=== PATIENT | male | born 1990 | race Caucasian/White ===

== ENCOUNTER 2017-07-06 12:39 | Emergency (ER) | payer SELFPAY | END 2017-07-06 15:05 | disposition home or self-care (01) | PROVIDERS: Emergency Provider Nurse Practitioner; Visit Provider Nurse Practitioner | DX: R51 Headache (principal); R00.2 Palpitations | CPT/HCPCS: G0463; 99201 ==

== ENCOUNTER 2017-07-12 12:59 | Emergency (ER) | payer SELFPAY ==
[2017-07-12 16:08] VITALS: BP 135/81; PULSE 97; RESP 20; TEMP 37.8; O2SAT 100
[2017-07-12 16:10] VITALS: BMI 20.7
[2017-07-12 17:35] VITALS: PULSE 102; RESP 18; TEMP 37.3; O2SAT 96; BMI 20.7
--- NOTE | 2017-07-12 19:21 | HMH.EDURI ---
ED Disposition Clinical Impression: Influenza A Disposition: Home, Self-Care Condition on Discharge: Good Instructions: Influenza Prescriptions: Oseltamivir Phosphate [Tamiflu 75mg Capsule] 75 mg PO BID #10 capsule - Critical Care Critical Care Time: No Attestation: On 07/12/17, the high probability of a clinically significant, sudden or life threatening deterioration of the following system(s) required my full and direct attention, intervention and personal management. The time I documented below is in addition to time spent performing reported procedures but includes the following listed in this critical care notation. Medical Decision Making Vital Signs: 07/12/17 16:08 07/12/17 17:35 Temperature 100.1 F H 99.2 F Temperature Source Oral Oral Pulse Rate [Left Radial] 97 H 102 H Respiratory Rate 20 18 Blood Pressure [Left Arm] 135/81 Blood Pressure Mean [Left Arm] 99 Blood Pressure Source [Left Arm] Automatic Cuff Blood Pressure Position [Left Arm] Sitting 02 Sat by Pulse Oximetry 100 96 Oxygen Delivery Method Room Air Room Air - Lab Data Lab results reviewed: Yes: I reviewed the patient's lab results. positive flu a test Orders (Tests/Meds): ED MEDICATIONS Discontinued Medications Generic Name Dose Route Start Last Admin Trade Name Freq PRN Reason Stop Dose Admin Acetaminophen 1,000 mg 07/12/17 17:06 07/12/17 17:23 Tylenol 500mg Tablet PO 07/12/17 17:07 1,000 mg ONCE ONE Administration - Jesus Inquiry Pt receiving controlled substance: No URI/Sore Throat HPI - General Chief Complaint: Upper Respiratory Infection Stated Complaint: poss flu Mode of Arrival: Ambulatory Source of Information: Patient Limitations: No Limitations Description of Symptoms (Recalled from ER Triage Doc. by RN): PT C/O BODY ACHES, COUGH , FEVER, RUNNY NOSE. - History of Present Illness Complaint: fever, cough Onset (ago): hour(s) (24) Duration: constant Severity: moderate Relieving factors: nothing Exacerbating factors: nothing Description of mucous: clear - Related Data Previous Rx's Medication Instructions Recorded Oseltamivir Phosphate [Tamiflu 75 mg PO BID #10 capsule 07/12/17 75mg Capsule] Allergies Allergy/AdvReac Type Severity Reaction Status Date / Time No Known Allergies Allergy Unverified 06/29/17 15:18 [facility] History I have reviewed the patient's past medical history: Yes Medical History: Denies:: Cancer, Diabetes Mellitus Type 1, Diabetes Mellitus Type 2, MRSA Amputation: No Fractures: No - *Social History Smoking Status: Never smoker Alcohol Intake: never - Psychiatric History Expresses thoughts of harming self/others: None Suicide Plan Description: No Plan ROS Obtained: Yes All systems reviewed & no additional complaints except - Constitutional Reports chills, Reports fever(s) - Respiratory Reports cough Physical Exam - General General appearance: alert, in no apparent distress - Head Head exam: atraumatic, normocephalic, normal inspection - Eye Eye exam: Present: normal appearance, PERRL, EOMI - ENT ENT exam: Present: normal exam, normal oropharynx, mucous membranes moist, TM's normal bilaterally, normal external ear exam - Neck Neck exam: Present: normal inspection, full ROM, trachea midline - Chest Chest inspection: Present: normal inspection, symmetric chest wall rise. Absent: tenderness - Respiratory Respiratory exam: Present: normal lung sounds bilaterally. Absent: respiratory distress - Cardiovascular Cardiovascular exam: Present: regular rate, normal rhythm. Absent: JVD - Abdominal Exam Abdominal exam: Present: soft, normal bowel sounds. Absent: distention, tenderness, guarding - Extremities Exam Extremities exam: Present: normal inspection, full ROM, normal capillary refill. Absent: calf tenderness - Back Exam Back exam: Present: normal inspection. Absent: tenderness - Neurologica
--- NOTE | 2017-07-12 19:25 | ED_ITS ---
ED Disposition Clinical Impression: Influenza A Disposition: Home, Self-Care Condition on Discharge: Good Instructions: Influenza Prescriptions: Oseltamivir Phosphate [Tamiflu 75mg Capsule] 75 mg PO BID #10 capsule - Critical Care Critical Care Time: No Attestation: On 07/12/17, the high probability of a clinically significant, sudden or life threatening deterioration of the following system(s) required my full and direct attention, intervention and personal management. The time I documented below is in addition to time spent performing reported procedures but includes the following listed in this critical care notation. Medical Decision Making Vital Signs: 07/12/17 16:08 07/12/17 17:35 Temperature 100.1 F H 99.2 F Temperature Source Oral Oral Pulse Rate [Left Radial] 97 H 102 H Respiratory Rate 20 18 Blood Pressure [Left Arm] 135/81 Blood Pressure Mean [Left Arm] 99 Blood Pressure Source [Left Arm] Automatic Cuff Blood Pressure Position [Left Arm] Sitting 02 Sat by Pulse Oximetry 100 96 Oxygen Delivery Method Room Air Room Air - Lab Data Lab results reviewed: Yes: I reviewed the patient's lab results. positive flu a test Orders (Tests/Meds): ED MEDICATIONS Discontinued Medications Generic Name Dose Route Start Last Admin Trade Name Freq PRN Reason Stop Dose Admin Acetaminophen 1,000 mg 07/12/17 17:06 07/12/17 17:23 Tylenol 500mg Tablet PO 07/12/17 17:07 1,000 mg ONCE ONE Administration - Jesus Inquiry Pt receiving controlled substance: No URI/Sore Throat HPI - General Chief Complaint: Upper Respiratory Infection Stated Complaint: poss flu Mode of Arrival: Ambulatory Source of Information: Patient Limitations: No Limitations Description of Symptoms (Recalled from ER Triage Doc. by RN): PT C/O BODY ACHES , COUGH , FEVER, RUNNY NOSE. - History of Present Illness Complaint: fever, cough Onset (ago): hour(s) (24) Duration: constant Severity: moderate Relieving factors: nothing Exacerbating factors: nothing Description of mucous: clear - Related Data Previous Rx's Medication Instructions Recorded Oseltamivir Phosphate [Tamiflu 75 mg PO BID #10 capsule 07/12/17 75mg Capsule] Allergies Allergy/AdvReac Type Severity Reaction Status Date / Time No Known Allergies Allergy Unverified 06/29/17 15:18 [facility] History I have reviewed the patient's past medical history: Yes Medical History: Denies:: Cancer, Diabetes Mellitus Type 1, Diabetes Mellitus Type 2, MRSA Amputation: No Fractures: No - *Social History Smoking Status: Never smoker Alcohol Intake: never - Psychiatric History Expresses thoughts of harming self/others: None Suicide Plan Description: No Plan ROS Obtained: Yes All systems reviewed & no additional complaints except - Constitutional Reports chills, Reports fever(s) - Respiratory Reports cough Physical Exam - General General appearance: alert, in no apparent distress - Head Head exam: atraumatic, normocephalic, normal inspection - Eye Eye exam: Present: normal appearance, PERRL, EOMI - ENT ENT exam: Present: normal exam, normal oropharynx, mucous membranes moist, TM's normal b
[2017-07-12 19:40] VITALS: BP 112/64; PULSE 109; RESP 18; TEMP 37.1; O2SAT 100
== END 2017-07-12 19:57 | disposition home or self-care (01) ==
PROVIDERS: Emergency Provider Family Medicine; Family Provider Family Medicine
DX: J10.1 Influenza due to other identified influenza virus with other respiratory manifestations (principal)
CPT/HCPCS: 87275; 87276; 99282; 99283

== ENCOUNTER 2017-08-16 19:02 | Emergency (ER) | payer SELFPAY ==
[2017-08-16 19:04] VITALS: BP 147/82; PULSE 127; RESP 16; TEMP 37.1; O2SAT 99
--- NOTE | 2017-08-16 19:09 | XR_ITS ---
XR chest 2V Ordering Physician: Antonio Mathias MD Patient Age: 26 years: Male HISTORY: ITS.REASON: CHEST PAIN TECHNIQUE: PA and lateral chest COMPARISON :June 04, 2017 2 view chest FINDINGS Narrow AP diameter of the chest was mild pectus excavatum anatomy . This accentuates heart size and density towards the medial lung bases.. Upper normal central markings but I see no focal pneumonia or consolidation . No pneumothorax no pleural effusion no CHF. The ribs and lateral T-spine intact. There is a curious linear density projected over the left kisha, left pulmonary artery.. It is seen only on the AP projection but not evident on the lateral view. Most likely overlapping artifact possibly in clothing. Would benefit from correlation specifically related to any unusual venous infusions/injections. Again I favor this is merely artifact AP view but should be kept in mind particularly if aggressive chest pain on left IMPRESSION: Lungs clear. No pneumothorax nor pleural effusion No acute cardio pulmonary disease.. A linear density projected over the left kisha most likely is artifact but but is noted. Note comments in text
[2017-08-16 19:19] LABS: Basophils % 0.2 % (0.1-2.0); Eosinophils # 0.1 K/mm3 (0.0-0.4); Eosinophils % 0.7 % (0.1-12.0); Hematocrit 48.9 % (42.0-52.0); Hemoglobin 16.8 g/dL (14.1-18.0); Lymphocytes # 2.4 K/mm3 (0.7-4.5); Lymphocytes % 26.5 K/mm3 (10-50); Mean Corpuscular HGB Conc 34.4 g/dL (31.8-35.4); Mean Corpuscular Volume 87.4 fl (80-94); Mean Platelet Volume 7.2 fl (7.4-10.4); Monocytes # 0.5 K/mm3 (0.1-1.0); Monocytes % 5.3 % (1.7-9.3); Neutrophils # 6.1 K/mm3 (1.8-7.8); Neutrophils % 67.3 % (37.0-80.0); Platelet Count 276 K/mm3 (142-424); Red Cell Distribution Width 12.4 % (11.5-17.5); White Blood Count 9.1 K/mm3 (4.8-10.8)
[2017-08-16 19:47] LABS: Alanine Aminotransferase 27 U/L (12-78); Albumin Level 4.5 gm/dL (3.4-5.0); Albumin/Globulin Ratio 1.3 (1.1-1.8); Alkaline Phosphatase 93 U/L (46-116); Anion Gap 12.2 mEq/L (5-15); Aspartate Amino Transferase 17 U/L (15-37); Bilirubin,Total 0.7 mg/dL (0.2-1.0); Blood Urea Nitrogen 14 mg/dL (7-18); CKMB Relative Index 0.5 U/L (0-4.0); Calcium 9.3 mg/dL (8.5-10.1); Carbon Dioxide 29 mmol/L (21.0-32.0); Chloride 102 mmol/L (98-107); Creatine Kinase 110 U/L (39-308); Creatine Kinase MB < 0.5 mg/ml (0.0-3.6); Creatinine Clearance Estimated 103 mL/min (0-300); Creatinine,Serum 0.84 mg/dL (0.70-1.30); Estimated Glomerular Filt Rate 111 ml/min (>60); GFR (African American) 135 ML/MIN (>60); Globulin 3.5 gm/dl (1.3-3.2); Glucose 89 mg/dL (74-106); Potassium 3.2 mmoL/L (3.5-5.1); Sodium 140 mmol/L (136-145); Troponin I < 0.02 ng/ml (0.00-0.06)
--- NOTE | 2017-08-16 20:20 | HMH.EDCP ---
ED Disposition Clinical Impression: Atypical chest pain Disposition: Home, Self-Care Condition on Discharge: Good Instructions: DI for Atypical Chest Pain Additional Instructions: see pcp this week for follow up - Critical Care Critical Care Time: No Attestation: On 08/16/17, the high probability of a clinically significant, sudden or life threatening deterioration of the following system(s) required my full and direct attention, intervention and personal management. The time I documented below is in addition to time spent performing reported procedures but includes the following listed in this critical care notation. Medical Decision Making - Medical Records Medical records reviewed: Yes: I reviewed the patient's medical records. Vital Signs: 08/16/17 19:04 Temperature 98.7 F Temperature Source Oral Pulse Rate [Right Brachial] 127 H Respiratory Rate 16 Blood Pressure [Right Arm] 147/82 Blood Pressure Mean [Right Arm] 103 02 Sat by Pulse Oximetry 99 - Lab Data Lab results reviewed: Yes: I reviewed the patient's lab results. Lab Results 08/16/17 19:11: WBC 9.1, RBC 5.60, Hgb 16.8, Hct 48.9, MCV 87.4, MCH 30.0, MCHC 34.4, RDW 12.4, Plt Count 276, MPV 7.2 L, Neut % (Auto) 67.3, Lymph % (Auto) 26.5, [place] % (Auto) 5.3, Eos % (Auto) 0.7, Baso % (Auto) 0.2, Neut # (Auto) 6.1, Lymph # (Auto) 2.4, [place] # (Auto) 0.5, Eos # (Auto) 0.1, Baso # (Auto) 0.0 08/16/17 19:11: Sodium 140, Potassium 3.2 L, Chloride 102, Carbon Dioxide 29, Anion Gap 12.2, BUN 14, Creatinine 0.84, Estimated Creat Clear 103, Estimated GFR 111, Est GFR ( Amer) 135, Glucose 89, Calcium 9.3, Total Bilirubin 0.7, AST 17, ALT 27, Alkaline Phosphatase 93, Total Creatine Kinase 110, CK-MB (CK-2) < 0.5, CK-MB (CK-2) Rel Index 0.5, Troponin I < 0.02, Total Protein 8.0, Albumin 4.5, Globulin 3.5 H, Albumin/Globulin Ratio 1.3 Result diagrams: 08/16/17 19:11 08/16/17 19:11 Orders (Tests/Meds): ORDERS Category Date Time Status 12-lead EKG Request [ECG Request by /Caitie] Stat Y 08/16/17 19:39 Ordered - Radiology Data #1 Image(s): Chest Image Reviewed: Yes I reviewed the patient's radiology image Preliminary Findings: Normal/NAD - ECG Data Tracing #1 I reviewed this ECG and interpreted as documented below: Normal Sinus Rhythm: Yes Ischemic changes: non-specific ST-T wave changes - Jesus Inquiry Pt receiving controlled substance: No Chest Pain HPI - General Chief Complaint: Chest Pain Stated Complaint: chest [pain Time Seen by Provider: 08/16/17 20:20 Mode of Arrival: Ambulatory Source of Information: Patient, Spouse, Medical Record Limitations: No Limitations Description of Symptoms (Recalled from ER Triage Doc. by RN): CHEST PAIN FOR 2 WEEKS - History of Present Illness HPI narrative: pt with fleeting episodes of stabbing chest pain over the last few months with inc episode last few weeks MD complaint: chest pain Onset (ago): month(s) Duration: now resolved Activity at onset: during rest Pain location: left chest Severity: moderate Quality: sharp Pain radiation: RUE, LUE Relieving factors: nothing Exacerbating factors: nothing Risk Factors for CAD: Family Hx of CAD Treatments prior to or on arrival for Cardiac Chest Pain: none - Related Data Allergies Allergy/AdvReac Type Severity Reaction Status Date / Time No Known Allergies Allergy Verified 08/16/17 19:08 [facility] History I have reviewed the patient's past medical history: Yes Medical History: Denies:: Cancer, Diabetes Mellitus Type 1, Diabetes Mellitus Type 2, MRSA Amputation: No Fractures: No - *Social History Smoking Status: Never smoker Alcohol Intake: never - Psychiatric History Expresses thoughts of harming self/others: None Suicide Plan Description: No Plan ROS Obtained: Yes All systems reviewed & no additional complaints - Constitutional Constitutional: Denies fever(s) - Eyes Eyes: Denies change in visio
--- NOTE | 2017-08-16 20:23 | ED_ITS ---
ED Disposition Clinical Impression: Atypical chest pain Disposition: Home, Self-Care Condition on Discharge: Good Instructions: DI for Atypical Chest Pain Additional Instructions: see pcp this week for follow up - Critical Care Critical Care Time: No Attestation: On 08/16/17, the high probability of a clinically significant, sudden or life threatening deterioration of the following system(s) required my full and direct attention, intervention and personal management. The time I documented below is in addition to time spent performing reported procedures but includes the following listed in this critical care notation. Medical Decision Making - Medical Records Medical records reviewed: Yes: I reviewed the patient's medical records. Vital Signs: 08/16/17 19:04 Temperature 98.7 F Temperature Source Oral Pulse Rate [Right Brachial] 127 H Respiratory Rate 16 Blood Pressure [Right Arm] 147/82 Blood Pressure Mean [Right Arm] 103 02 Sat by Pulse Oximetry 99 - Lab Data Lab results reviewed: Yes: I reviewed the patient's lab results. Lab Results 08/16/17 19:11: WBC 9.1, RBC 5.60, Hgb 16.8, Hct 48.9, MCV 87.4, MCH 30.0, MCHC 34.4, RDW 12.4, Plt Count 276, MPV 7.2 L, Neut % (Auto) 67.3, Lymph % (Auto) 26.5, [place] % (Auto) 5.3, Eos % (Auto) 0.7, Baso % (Auto) 0.2, Neut # (Auto) 6.1 , Lymph # (Auto) 2.4, [place] # (Auto) 0.5, Eos # (Auto) 0.1, Baso # (Auto) 0.0 08/16/17 19:11: Sodium 140, Potassium 3.2 L, Chloride 102, Carbon Dioxide 29, Anion Gap 12.2, BUN 14, Creatinine 0.84, Estimated Creat Clear 103, Estimated GFR 111, Est GFR ( Amer) 135, Glucose 89, Calcium 9.3, Total Bilirubin 0.7, AST 17, ALT 27, Alkaline Phosphatase 93, Total Creatine Kinase 110, CK-MB ( CK-2) < 0.5, CK-MB (CK-2) Rel Index 0.5, Troponin I < 0.02, Total Protein 8.0, Albumin 4.5, Globulin 3.5 H, Albumin/Globulin Ratio 1.3 Result diagrams: 08/16/17 19:11 08/16/17 19:11 Orders (Tests/Meds): ORDERS Category Date Time Status 12-lead EKG Request [ECG Request by /Caitie] Stat Y 08/16/17 19:39 Ordered - Radiology Data #1 Image(s): Chest Image Reviewed: Yes I reviewed the patient's radiology image Preliminary Findings: Normal/NAD - ECG Data Tracing #1 I reviewed this ECG and interpreted as documented below: Normal Sinus Rhythm: Yes Ischemic changes: non-specific ST-T wave changes - Jesus Inquiry Pt receiving controlled substance: No Chest Pain HPI - General Chief Complaint: Chest Pain Stated Complaint: chest [pain Time Seen by Provider: 08/16/17 20:20 Mode of Arrival: Ambulatory Source of Information: Patient, Spouse, Medical Record Limitations: No Limitations Description of Symptoms (Recalled from ER Triage Doc. by RN): CHEST PAIN FOR 2 WEEKS - History of Present Illness HPI narrative: pt with fleeting episodes of stabbing chest pain over the last few months with inc episode last few weeks complaint: chest pain Onset (ago): month(s) Duration: now resolved Activity at onset: during rest Pain location: left chest Severity: moderate Quality: sharp Pain radiation: RUE, LUE Relieving factors: nothing Exacerbating factors: nothing Risk Factors for CAD: Family Hx of CAD Treatments prior to or on arrival for Cardiac Chest Pain: none - Related Data Allergies Allergy/AdvReac Type Severity Reaction Status Date / Time
[2017-08-16 20:38] VITALS: BP 116/76; PULSE 98; RESP 16; TEMP 36.4; O2SAT 97
== END 2017-08-16 20:39 | disposition home or self-care (01) ==
PROVIDERS: Emergency Provider Emergency Medicine; Family Provider Family Medicine
DX: R07.9 Chest pain, unspecified (principal); Z82.49 Family history of ischemic heart disease and other diseases of the circulatory system
CPT/HCPCS: 71046; 80053; 82550; 82553; 84484; 85025; 93005; 99282

== ENCOUNTER → 2017-09-15 17:16 | Outpatient (REF) | payer SELFPAY ==
[2017-09-15 20:09] LABS: Amphetamine/Metha Screen,Urine Negative ng/mL (<1000); Barbiturates Screen,Urine Negative ng/mL (<200); Benzodiazepines Screen,Urine Negative ng/mL (200); Cannabinoid Screen,Urine Negative ng/mL (<50); Cocaine Screen,Urine Negative ng/g (<300); Methadone Screen,Urine Negative ng/mL (<300); Opiate Screen,Urine Positive ng/mL (<300); Phencyclidine Screen,Urine Negative ng/mL (<25)
== END ==
LOC: LAB 17:16
PROVIDERS: Visit Provider Nurse Practitioner Family
DX: Z79.899 Other long term (current) drug therapy (principal)
CPT/HCPCS: 80305

== ENCOUNTER 2017-09-21 16:43 | Emergency (ER) | payer OTHER, SELFPAY ==
--- NOTE | 2017-09-21 16:58 | XR_ITS ---
XR foot LT min 3V HISTORY: Pain following injury ITS.REASON: DROPPED METAL ON FOOT ORDERING PHYSICIAN: Patrick Collier PATIENT AGE: 27 years COMPARISON: None FINDINGS: No fracture or dislocation. No lytic or blastic change. There is normal mineralization.. The joint spaces are well-preserved. No significant degenerative/arthritic changes. No erosive changes evident. IMPRESSION: Negative left foot, no acute finding
[2017-09-21 17:02] VITALS: BP 106/79; PULSE 101; RESP 20; TEMP 36.8; O2SAT 98
--- NOTE | 2017-09-21 17:30 | HMH.EDUTC ---
[facility] [place] Disposition Clinical Impression: Sprain of left foot Qualifiers: Encounter type: initial encounter Qualified Code(s): S93.602A - Unspecified sprain of left foot, initial encounter Disposition: Home, Self-Care Condition on Discharge: Good Instructions: How to Use Crutches, How To Perform RICE (Rest, Ice, Compress, Elevate), How to Apply an Tariq Wrap Additional Instructions: * weight bearing as tolerated. If painful to bear weight, don't do so. I recommended you use crutches because of the pain. pain is your bodies way of telling you to rest. If you don't want to use them, that is up to you but you can do further damage but continuing to bear weight. * Rest * ice 15-20 mins 3-4 times a day * Tariq wrap for support and swelling unless in shower. Be sure not too tight but not too loose either * Elevate as discussed as much as possible to help reduce swelling and therefore, pain * Ibuprofen every 6 hours as needed for pain and inflammation. If you need something more, you can take tylenol every 4 hours as needed as long as your primary care provider has told you it is ok to take both. * Work restrictions x 1 week then follow up with primary care to have them changed. If you feel better sooner, follow up sooner for reevaluation. Referrals: Antonio Mathias MD [Primary Care Provider] - (Next week for reevaluation. Sooner for new or worsening symptoms.) Time of Disposition: 17:35 Medical Decision Making - Jesus Inquiry Pt receiving controlled substance: No Vital Signs: 09/21/17 17:02 Temperature 98.2 F Temperature Source Temporal Artery Scan Pulse Rate [Brachial] 101 H Respiratory Rate 20 Blood Pressure [Right Arm] 106/79 Blood Pressure Mean [Right Arm] 88 Blood Pressure Source [Right Arm] Automatic Cuff Blood Pressure Position [Right Arm] Sitting 02 Sat by Pulse Oximetry 98 Oxygen Delivery Method Room Air - Radiology Data #1 Image(s): Other (foot) Image Reviewed: Yes I have reviewed radiologist's interpretation Preliminary Findings: Normal/NAD [facility] [place] HPI - General Stated complaint: WC [id number] @1200 injured l foot Time Seen by Provider: 09/21/17 17:05 Mode of Arrival: Ambulatory Source of Information: Patient Limitations: No Limitations Description of Symptoms (Recalled from Triage Doc. 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 In the process of trying to prevent injury to self, twisted left ankle but no pain in ankle, just swelling and pain in foot. Pain worse with ankle ROM and weight bearing but no limitations in ankle ROM. No treatment prior to arrival. Stayed and finished out shift. - Related Data Allergies Allergy/AdvReac Type Severity Reaction Status Date / Time No Known Allergies Allergy Verified 09/15/17 16:44 - Worker's Comp Is this a Worker's Comp case?: Yes [facility] History I have reviewed the patient's past medical history: Yes Medical History: Denies:: Cancer, Diabetes Mellitus Type 1, Diabetes Mellitus Type 2, Hypertension, MRSA Other Surgeries: Yes: No Previous Surgery Amputation: No Fractures: No - Social History Smoking Status: Never smoker Alcohol Intake: never Substance Use Type: denies use Occupational Status: employed Housing: house Household Members: spouse - Psychiatric History Expresses thoughts of harming self/others: None Suicide Plan Description: No Plan Family Hx:: No significant family history ROS Obtained: Yes Systems reviewed as appropriate & no additional complaints - Musculoskeletal Musculoskeletal: Reports as per HPI, Reports abnormal
[2017-09-21 17:34] VITALS: BP 106/79; PULSE 101; RESP 20; TEMP 36.8; O2SAT 98
--- NOTE | 2017-09-21 17:34 | ED_ITS ---
[facility] [place] Clinical Impression: Sprain of left foot Qualifiers: Encounter type: initial encounter Qualified Code(s): S93.602A - Unspecified sprain of left foot, initial encounter Disposition: Home, Self-Care Condition on Discharge: Good Instructions: How to Use Crutches, How To Perform RICE (Rest, Ice, Compress, Elevate), How to Apply an Tariq Wrap Additional Instructions: * weight bearing as tolerated. If painful to bear weight, don't do so. I recommended you use crutches because of the pain. pain is your bodies way of telling you to rest. If you don't want to use them, that is up to you but you can do further damage but continuing to bear weight. * Rest * ice 15-20 mins 3-4 times a day * Tariq wrap for support and swelling unless in shower. Be sure not too tight but not too loose either * Elevate as discussed as much as possible to help reduce swelling and therefore , pain * Ibuprofen every 6 hours as needed for pain and inflammation. If you need something more, you can take tylenol every 4 hours as needed as long as your primary care provider has told you it is ok to take both. * Work restrictions x 1 week then follow up with primary care to have them changed. If you feel better sooner, follow up sooner for reevaluation. Referrals: Antonio Mathias MD [Primary Care Provider] - (Next week for reevaluation. Sooner for new or worsening symptoms.) Time of Disposition: 17:35 Medical Decision Making - Jesus Inquiry Pt receiving controlled substance: No Vital Signs: 09/21/17 17:02 Temperature 98.2 F Temperature Source Temporal Artery Scan Pulse Rate [Brachial] 101 H Respiratory Rate 20 Blood Pressure [Right Arm] 106/79 Blood Pressure Mean [Right Arm] 88 Blood Pressure Source [Right Arm] Automatic Cuff Blood Pressure Position [Right Arm] Sitting 02 Sat by Pulse Oximetry 98 Oxygen Delivery Method Room Air - Radiology Data #1 Image(s): Other (foot) Image Reviewed: Yes I have reviewed radiologist's interpretation Preliminary Findings: Normal/NAD [facility] [place] HPI - General Stated complaint: WC [id number] @1200 injured l foot Time Seen by Provider: 09/21/17 17:05 Mode of Arrival: Ambulatory Source of Information: Patient Limitations: No Limitations Description of Symptoms (Recalled from Triage Doc. 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 In the process of trying to prevent injury to self, twisted left ankle but no pain in ankle, just swelling and pain in foot. Pain worse with ankle ROM and weight bearing but no limitations in ankle ROM. No treatment prior to arrival. Stayed and finished out shift. - Related Data Allergies Allergy/AdvReac Type Severity Reaction Status Date / Time No Known Allergies Allergy Verified 09/15/17 16:44 - Worker's Comp Is this a Worker's Comp case?: Yes [facility] History I have reviewed the patient's past medical history: Yes Medical History: Denies:: Cancer, Diabetes Mellitus Type 1, Diabetes Mellitus Type 2, Hypertension, MRSA Other Surgeries: Yes: No Previous Surge
== END 2017-09-21 17:36 | disposition home or self-care (01) ==
PROVIDERS: Emergency Provider Nurse Practitioner Family; Family Provider Family Medicine; PCP Emergency Medicine
DX: S93.602A Unspecified sprain of left foot, initial encounter (principal); X50.1XXA Overexertion from prolonged static or awkward postures, initial encounter; Y92.69 Other specified industrial and construction area as the place of occurrence of the external cause; Y99.0 Civilian activity done for income or pay
CPT/HCPCS: 73630; 99203

== ENCOUNTER 2017-09-24 12:16 | Emergency (ER) | payer OTHER, MEDICARE, SELFPAY ==
[2017-09-24 12:28] VITALS: BP 110/64; PULSE 103; RESP 20; TEMP 36.8; O2SAT 99
--- NOTE | 2017-09-24 12:47 | HMH.EDUTC ---
[facility] [place] Clinical Impression: Return to work evaluation Disposition: Home, Self-Care Condition on Discharge: Good Additional Instructions: Return to work without restrictions Follow up for any new or returning symptoms See workman comp form Referrals: Antonio Mathias MD [Primary Care Provider] - (as needed) Time of Disposition: 12:55 Medical Decision Making - Medical Records Medical records reviewed: Yes: I reviewed the patient's medical records. MR Comment: rvwd final xray results from 09/21 visit, negative - Jesus Inquiry Pt receiving controlled substance: No Vital Signs: 09/24/17 12:28 Temperature 98.2 F Temperature Source Temporal Artery Scan Pulse Rate [Right Radial] 103 H Respiratory Rate 20 Blood Pressure [Right Arm] 110/64 Blood Pressure Mean [Right Arm] 79 Blood Pressure Source [Right Arm] Automatic Cuff Blood Pressure Position [Right Arm] Sitting 02 Sat by Pulse Oximetry 99 Oxygen Delivery Method Room Air [facility] [place] - General Stated complaint: wants clearance for work Time Seen by Provider: 09/24/17 12:40 Mode of Arrival: Family Vehicle Source of Information: Patient Limitations: No Limitations Description of Symptoms (Recalled from Triage Doc. by RN): pt here for re-evaluation of left foot injury. HEENT Symptoms (Recalled from RN notes): No Resp Symptoms (Recalled from RN notes): No Skin Symptoms (Recalled from RN notes): No MS Symptoms (Recalled from RN notes): Yes (left foot injury) Functional Status (Recalled from RN notes): na - History of Present Illness Provider Complaint: c/o need to be released to return to work. Was seen 09/21 for left foot pain. 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 xray negative. dx sprain. Work is not allowing him to work with restrictions. Pain resolved and full ROM. Ambulating without crutches or pain. Wants to retun to welding. - Related Data Allergies Allergy/AdvReac Type Severity Reaction Status Date / Time No Known Allergies Allergy Verified 09/15/17 16:44 - Worker's Comp Is this a Worker's Comp case?: No [facility] History I have reviewed the patient's past medical history: Yes Medical History: Denies:: Cancer, Diabetes Mellitus Type 1, Diabetes Mellitus Type 2, Hypertension, MRSA Other Surgeries: Yes: No Previous Surgery Amputation: No Fractures: No - Social History Smoking Status: Never smoker Alcohol Intake: never Substance Use Type: denies use Occupational Status: employed Housing: house Household Members: spouse - Psychiatric History Expresses thoughts of harming self/others: None Suicide Plan Description: No Plan Family Hx:: No significant family history ROS Obtained: Yes Systems reviewed as appropriate & no additional complaints - Musculoskeletal Musculoskeletal: Reports as per HPI - Integumentary/Breasts Skin/Breast: Reports change in skin color (ecchymosis fading per patient), Denies wounds - Neurologic Neurologic: Denies tingling/numbness/burning sensations Physical Exam - General General appearance: alert, in no apparent distress - Respiratory Respiratory exam: Absent: respiratory distress - Cardiovascular Cardiovascular exam: Present: tachycardia - Expanded Lower Extremity Exam Left Knee exam: Present: normal inspection, full ROM. Absent: tenderness Lower leg exam: Present: normal inspection. Absent: tenderness Ankle exam: Present: normal inspection, full ROM. Absent: tenderness Foot/toe exam: Present: full ROM (without pain) 1 - minimal tenderness w/ deep palpation 2 - ([place]) light green fading ecchymosis Neurovascular/Tendon exam: Present: normal capillary refill. Absent: pulse deficit, motor deficit, sensory deficit Gait: observed and normal - Neurological Exam Neurological exam: Present: alert, oriented X3 - S
--- NOTE | 2017-09-24 12:55 | ED_ITS ---
[facility] [place] Disposition Clinical Impression: Return to work evaluation Disposition: Home, Self-Care Condition on Discharge: Good Additional Instructions: Return to work without restrictions Follow up for any new or returning symptoms See workman comp form Referrals: Antonio Mathias MD [Primary Care Provider] - (as needed) Time of Disposition: 12:55 Medical Decision Making - Medical Records Medical records reviewed: Yes: I reviewed the patient's medical records. MR Comment: rvwd final xray results from 09/21 visit, negative - Jesus Inquiry Pt receiving controlled substance: No Vital Signs: 09/24/17 12:28 Temperature 98.2 F Temperature Source Temporal Artery Scan Pulse Rate [Right Radial] 103 H Respiratory Rate 20 Blood Pressure [Right Arm] 110/64 Blood Pressure Mean [Right Arm] 79 Blood Pressure Source [Right Arm] Automatic Cuff Blood Pressure Position [Right Arm] Sitting 02 Sat by Pulse Oximetry 99 Oxygen Delivery Method Room Air [facility] [place] HPI - General Stated complaint: wants clearance for work Time Seen by Provider: 09/24/17 12:40 Mode of Arrival: Family Vehicle Source of Information: Patient Limitations: No Limitations Description of Symptoms (Recalled from Triage Doc. by RN): pt here for re- evaluation of left foot injury. HEENT Symptoms (Recalled from RN notes): No Resp Symptoms (Recalled from RN notes): No Skin Symptoms (Recalled from RN notes): No MS Symptoms (Recalled from RN notes): Yes (left foot injury) Functional Status (Recalled from RN notes): na - History of Present Illness Provider Complaint: c/o need to be released to return to work. Was seen 09/21 for left foot pain. 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 xray negative. dx sprain. Work is not allowing him to work with restrictions. Pain resolved and full ROM. Ambulating without crutches or pain. Wants to retun to welding. - Related Data Allergies Allergy/AdvReac Type Severity Reaction Status Date / Time No Known Allergies Allergy Verified 09/15/17 16:44 - Worker's Comp Is this a Worker's Comp case?: No [facility] History I have reviewed the patient's past medical history: Yes Medical History: Denies:: Cancer, Diabetes Mellitus Type 1, Diabetes Mellitus Type 2, Hypertension, MRSA Other Surgeries: Yes: No Previous Surgery Amputation: No Fractures: No - Social History Smoking Status: Never smoker Alcohol Intake: never Substance Use Type: denies use Occupational Status: employed Housing: house Household Members: spouse - Psychiatric History Expresses thoughts of harming self/others: None Suicide Plan Description: No Plan Family Hx:: No significant family history ROS Obtained: Yes Systems reviewed as appropriate & no additional complaints - Musculoskeletal Musculoskeletal: Reports as per HPI - Integumentary/Breasts Skin/Breast: Reports change in skin color (ecchymosis fading per patient), Denies wounds - Neurologic Neurologic: Denies tingling/numbness/burning sensations Physical Exam - General General appearance: alert, in no apparent distress - Respiratory Respiratory exam: Absent: respiratory distress - Cardiovascular Cardiovascular exam: Present: tachycardia - Expanded Lower Extremity Exam Left Knee exam: Present: normal ins
[2017-09-24 12:57] VITALS: BP 108/69; PULSE 79; RESP 18; TEMP 36.9; O2SAT 100
== END 2017-09-24 12:58 | disposition home or self-care (01) ==
PROVIDERS: Emergency Provider Nurse Practitioner Family; Family Provider Family Medicine; PCP Emergency Medicine
DX: S93.602D Unspecified sprain of left foot, subsequent encounter (principal); Z76.89 Persons encountering health services in other specified circumstances
CPT/HCPCS: 99201

== ENCOUNTER 2018-01-04 16:52 | Emergency (ER) | payer SELFPAY ==
[2018-01-04 16:53] VITALS: BP 120/67; PULSE 90; RESP 18; TEMP 36.6; O2SAT 99
--- NOTE | 2018-01-04 17:02 | HMH.EDANX ---
ED Disposition Clinical Impression: Palpitations Disposition: Home, Self-Care Condition on Discharge: Fair Additional Instructions: 1- i recommend outpatient echo and follow up with Dr De Leon. 2- avoid caffeine containing products. 3- consider comp care consultation if work is negative . Referrals: Antonio Mathias MD [Primary Care Provider] - - Critical Care Critical Care Time: No Attestation: On 01/04/18, the high probability of a clinically significant, sudden or life threatening deterioration of the following system(s) required my full and direct attention, intervention and personal management. The time I documented below is in addition to time spent performing reported procedures but includes the following listed in this critical care notation. Medical Decision Making - Jesus Inquiry Pt receiving controlled substance: No Jesus was queried for this patient: No Vital Signs: 01/04/18 16:53 Temperature 97.9 F Temperature Source Oral Pulse Rate [Right Radial] 90 Respiratory Rate 18 Blood Pressure [Right Arm] 120/67 Blood Pressure Mean [Right Arm] 84 Blood Pressure Source [Right Arm] Automatic Cuff Blood Pressure Position [Right Arm] Sitting 02 Sat by Pulse Oximetry 99 Oxygen Delivery Method Room Air - Lab Data Lab Results 01/04/18 17:40: WBC 5.3, RBC 5.58, Hgb 16.1, Hct 49.9, MCV 89.4, MCH 28.8, MCHC 32.2, RDW 12.5, Plt Count 249, MPV 7.3 L, Neut % (Auto) 70.8, Lymph % (Auto) 21.4, [place] % (Auto) 6.6, Eos % (Auto) 0.8, Baso % (Auto) 0.4, Neut # (Auto) 3.8, Lymph # (Auto) 1.1, [place] # (Auto) 0.4, Eos # (Auto) 0.0, Baso # (Auto) 0.0 01/04/18 17:40: Sodium 141, Potassium 3.9, Chloride 104, Carbon Dioxide 32, Anion Gap 8.9, BUN 15, Creatinine 0.79, Estimated Creat Clear 109, Estimated GFR 119, Est GFR ( Amer) 143, Glucose 94, Calcium 9.2, TSH 0.89, Free T4 0.93 Result diagrams: 01/04/18 17:40 01/04/18 17:40 Orders (Tests/Meds): ED MEDICATIONS Discontinued Medications Generic Name Dose Route Start Last Admin Trade Name Ramon PRN Reason Stop Dose Admin Sodium Chloride 1,000 mls @ 999 mls/hr 01/04/18 17:15 01/04/18 18:24 Sod Chlor 0.9% 1000ml Bag IV 01/04/18 18:15 999 mls/hr .Q1H1M FILIPE Administration ORDERS Category Date Time Status Chest XR 2 view (NOT portable) [XR chest 2V] Stat Exams 01/04/18 17:15 Taken ECG Request by Dr/Nse Stat Y 01/04/18 17:12 Ordered - Radiology Data #1 Image(s): Chest Image Reviewed: Yes I reviewed the patient's radiology image Preliminary Findings: Normal/NAD, Abnormal Hyperinflated with elongated mediastinum no acute findings. - ECG Data Tracing #1 Normal sinus rhythm 86/min biatrial enlargement and possible right hypertrophy. ECG initial impression date: 01/04/18 ECG initial impression time: 17:07 Medical Decision Narrative: I spoke with the patient's mother who informed frequently and it was really ridiculous to bring him by ambulance and cost him an EMS bill. We discussed possible precipitating factors like caffeine and soda. We discussed the possibility of gallbladder disease. After obtaining normal labs including thyroid function test that advised the patient for outpatient cardiac echo follow-up with Dr. Mathias. The patient his mother verbalized understanding with the discussion and discharge plan. Anxiety HPI - General Chief Complaint: Anxiety Stated Complaint: Elevated heart rate Time Seen by Provider: 01/04/18 17:00 Mode of Arrival: EMS Limitations: No Limitations Description of Symptoms (Recalled from ER Triage Doc. by RN): Elevated heart rate - History of Present Illness HPI narrative: 27 years old male with history of anxiety who went to see his primary care physician while he was having an episode and his heart rate was 160/min. The office nurse called the EMS and the patient was brought to the ED. on arrival his heart rate was 91/min. He denied hav
--- NOTE | 2018-01-04 17:06 | ED_ITS ---
ED Disposition Clinical Impression: Palpitations Disposition: Home, Self-Care Condition on Discharge: Fair Additional Instructions: 1- i recommend outpatient echo and follow up with Dr De Leon. 2- avoid caffeine containing products. 3- consider comp care consultation if work is negative . Referrals: Antonio Mathias MD [Primary Care Provider] - - Critical Care Critical Care Time: No Attestation: On 01/04/18, the high probability of a clinically significant, sudden or life threatening deterioration of the following system(s) required my full and direct attention, intervention and personal management. The time I documented below is in addition to time spent performing reported procedures but includes the following listed in this critical care notation. Medical Decision Making - Jesus Inquiry Pt receiving controlled substance: No Jesus was queried for this patient: No Vital Signs: 01/04/18 16:53 Temperature 97.9 F Temperature Source Oral Pulse Rate [Right Radial] 90 Respiratory Rate 18 Blood Pressure [Right Arm] 120/67 Blood Pressure Mean [Right Arm] 84 Blood Pressure Source [Right Arm] Automatic Cuff Blood Pressure Position [Right Arm] Sitting 02 Sat by Pulse Oximetry 99 Oxygen Delivery Method Room Air - Lab Data Lab Results 01/04/18 17:40: WBC 5.3, RBC 5.58, Hgb 16.1, Hct 49.9, MCV 89.4, MCH 28.8, MCHC 32.2, RDW 12.5, Plt Count 249, MPV 7.3 L, Neut % (Auto) 70.8, Lymph % (Auto) 21.4, [place] % (Auto) 6.6, Eos % (Auto) 0.8, Baso % (Auto) 0.4, Neut # (Auto) 3.8 , Lymph # (Auto) 1.1, [place] # (Auto) 0.4, Eos # (Auto) 0.0, Baso # (Auto) 0.0 01/04/18 17:40: Sodium 141, Potassium 3.9, Chloride 104, Carbon Dioxide 32, Anion Gap 8.9, BUN 15, Creatinine 0.79, Estimated Creat Clear 109, Estimated GFR 119, Est GFR ( Amer) 143, Glucose 94, Calcium 9.2, TSH 0.89, Free T4 0.93 Result diagrams: 01/04/18 17:40 01/04/18 17:40 Orders (Tests/Meds): ED MEDICATIONS Discontinued Medications Generic Name Dose Route Start Last Admin Trade Name Baronq PRN Reason Stop Dose Admin Sodium Chloride 1,000 mls @ 999 mls/hr 01/04/18 17:15 01/04/18 18:24 Sod Chlor 0.9% 1000ml Bag IV 01/04/18 18:15 999 mls/hr .Q1H1M FILIPE Administration ORDERS Category Date Time Status Chest XR 2 view (NOT portable) [XR chest 2V] Stat Exams 01/04/18 17:15 Taken ECG Request by Dr/Caitie Stat Y 01/04/18 17:12 Ordered - Radiology Data #1 Image(s): Chest Image Reviewed: Yes I reviewed the patient's radiology image Preliminary Findings: Normal/NAD, Abnormal Hyperinflated with elongated mediastinum no acute findings. - ECG Data Tracing #1 Normal sinus rhythm 86/min biatrial enlargement and possible right hypertrophy. ECG initial impression date: 01/04/18 ECG initial impression time: 17:07 Medical Decision Narrative: I spoke with the patient's mother who informed frequently and it was really ridiculous to bring him by ambulance and cost him an EMS bill. We discussed possible precipitating factors like caffeine and soda. We discussed the possibility of gallbladder disease. After obtaining normal labs including thyroid function test that advised the patient for outpatient cardiac echo follow-up with Dr. Mathias. The patient h
--- NOTE | 2018-01-04 17:15 | XR_ITS ---
XR chest 2V HISTORY: ITS.REASON: palpitation ORDERING PHYSICIAN: Stormy Carrillo MD PATIENT AGE: 27 years COMPARISON: None FINDINGS: The cardiomediastinal silhouette and pulmonary vascularity are within normal limits. The lungs are clear without infiltrates, suspicious nodules, or pleural effusions. No acute bony abnormalities. There is reversal of the thoracic kyphosis and there is a mild pectus deformity with silhouetting out of the right heart border IMPRESSION: No change with no acute finding
[2018-01-04 17:58] LABS: Basophils % 0.4 % (0.1-2.0); Eosinophils % 0.8 % (0.1-12.0); Hematocrit 49.9 % (42.0-52.0); Hemoglobin 16.1 g/dL (14.1-18.0); Lymphocytes # 1.1 K/mm3 (0.7-4.5); Lymphocytes % 21.4 K/mm3 (10-50); Mean Corpuscular HGB Conc 32.2 g/dL (31.8-35.4); Mean Corpuscular Hemoglobin 28.8 pg (27.0-31.2); Mean Corpuscular Volume 89.4 fl (80-94); Mean Platelet Volume 7.3 fl (7.4-10.4); Monocytes # 0.4 K/mm3 (0.1-1.0); Monocytes % 6.6 % (1.7-9.3); Neutrophils # 3.8 K/mm3 (1.8-7.8); Neutrophils % 70.8 % (37.0-80.0); Platelet Count 249 K/mm3 (142-424); Red Blood Count 5.58 M/mm3 (4.60-6.20); Red Cell Distribution Width 12.5 % (11.5-17.5); White Blood Count 5.3 K/mm3 (4.8-10.8)
[2018-01-04 18:12] LABS: Anion Gap 8.9 mEq/L (5-15); Blood Urea Nitrogen 15 mg/dL (7-18); Calcium 9.2 mg/dL (8.5-10.1); Carbon Dioxide 32 mmol/L (21.0-32.0); Chloride 104 mmol/L (98-107); Creatinine Clearance Estimated 109 mL/min (0-300); Creatinine,Serum 0.79 mg/dL (0.70-1.30); Estimated Glomerular Filt Rate 119 ml/min (>60); Free T4 (Free Thyroxine) 0.93 ng/dl (0.76-1.46); GFR (African American) 143 ML/MIN (>60); Glucose 94 mg/dL (74-106); Potassium 3.9 mmoL/L (3.5-5.1); Sodium 141 mmol/L (136-145); Thyroid Stimulating Hormone 0.89 uIU/ml (0.358-3.740)
[2018-01-04 18:58] VITALS: BP 104/53; PULSE 93; RESP 20; TEMP 37.1; O2SAT 98
== END 2018-01-04 19:01 | disposition home or self-care (01) ==
PROVIDERS: Emergency Provider Emergency Medicine; Family Provider Family Medicine; PCP Emergency Medicine
DX: R00.2 Palpitations (principal); F17.210 Nicotine dependence, cigarettes, uncomplicated
CPT/HCPCS: 36415; 71046; 80048; 84439; 84443; 85025; 93005; 96365; 99283

== ENCOUNTER 2023-10-28 16:27 | Emergency (ER) | payer OTHER, SELFPAY ==
[2023-10-28 16:29] VITALS: BP 134/90; PULSE 67; RESP 15; TEMP 36.9; O2SAT 99
--- NOTE | 2023-10-28 16:41 | PC.NURSE ---
DR GRANADO AT BEDSIDE
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
--- NOTE | 2023-10-28 16:55 | PC.NURSE ---
called [facility] per Dr Victor to speak with Plastics about this pt.. Put on hold for minute while they paged plastics and Dr Victor is speaking with Plastics now
[2023-10-28 17:34] VITALS: BP 115/73; PULSE 92; RESP 16; TEMP 36.6
== END 2023-10-28 17:34 | disposition home or self-care (01) ==
PROVIDERS: Emergency Provider Student in an Organized Health Care Education/Training Program
DX: T25.322A Burn of third degree of left foot, initial encounter (principal); T25.222A Burn of second degree of left foot, initial encounter; T30.4 Corrosion of unspecified body region, unspecified degree; X58.XXXA Exposure to other specified factors, initial encounter
CPT/HCPCS: 99283